=== PATIENT | female | born 1950 | race Caucasian/White ===

== ENCOUNTER 2021-02-19 13:31 | Emergency (ER) | payer MEDICARE, SELFPAY ==
[2021-02-19 13:46] VITALS: BP 132/79; PULSE 88; RESP 16; TEMP 38.1; O2SAT 93
--- NOTE | 2021-02-19 13:46 | XR_ITS ---
WS: [id number] Chest 2 views, 02/19/2021 Clinical Data: low O2 Comparison: None. Findings: No nodules, masses or effusions are seen. The heart is normal. The pulmonary vascularity is not increased. No pneumonia or pneumothorax is seen. The aortic arch and descending thoracic aorta s hows mild tortuosity. XR/XR chest 2V* 37133 Impression: Atherosclerosis.
[2021-02-19 15:45] LABS: Basophils # 0.1 10^3/uL (0.0-0.1); Basophils % 0.7 %; Eosinophils # 0.1 10^3/uL (0.0-0.8); Eosinophils % 1.2 %; Hematocrit 40.2 % (37.0-47.0); Hemoglobin 13.1 g/dL (11.5-15.3); Lymphocytes # 2.6 10^3/uL (0.8-4.8); Lymphocytes % 32.3 %; Mean Corpuscular HGB Conc 32.6 g/dL (30.0-36.0); Mean Corpuscular Hemoglobin 29.4 pg (28.0-34.0); Mean Corpuscular Volume 90.3 fl (81-99); Mean Platelet Volume 9.9 fL (7.4-10.4); Monocytes # 1.1 10^3/uL (0.2-0.9); Monocytes % 13.6 %; Neutrophils # 4.16 10^3/uL (1.8-7.7); Nucleated Red Blood Cells % 0 %; Platelet Count 206 10^3/cmm (130-400); Red Blood Count 4.45 10^6/uL (4.1-5.3); Red Cell Distribution Width 12.7 % (12.1-15.1)
[2021-02-19 15:58] LABS: Alanine Aminotransferase 18 U/L (0-33); Albumin Level 4.2 g/dL (3.5-5.2); Alkaline Phosphatase 64 IU/L (35-105); Anion Gap 15.9 (5-19); Aspartate Amino Transferase 20 U/L (0-32); Blood Urea Nitrogen 22 mg/dL (8-23); Calcium 8.8 mg/dL (8.5-10.5); Carbon Dioxide 26 mmol/L (22-29); Chloride 98 mmol/L (98-107); Globulin 3.2 g/dL (1.3-4.6); Glomerular Filtration Rate 34.5 mL/min (90-130); Glucose 128 mg/dL (65-115); Osmolality Calculated 285 mOsm/kg (285-295); Potassium 4.9 mmol/L (3.5-5.1); Sodium 135 mmol/L (136-145); Total Bilirubin 0.7 mg/dL (0.15-1.2); Total Protein 7.4 g/dL (6.6-8.7)
[2021-02-19 16:01] LABS: Lactate (Lactic Acid level) 0.8 mmol/L (0.5-2.2)
[2021-02-19 18:11] VITALS: O2SAT 97
[2021-02-19 18:15] LABS: Influenza A by IFA Negative (Negative); Influenza B by IFA Negative (Negative)
--- NOTE | 2021-02-19 18:52 | ED_ITS ---
HPI - General Adult General: Chief complaint: COVID symptoms Stated complaint: LOW O2 Time Seen by Provider: 02/19/21 17:24 History of Present Illness: HPI narrative: CC: Shortness of breath, fever and generalized weakness HPI: This is a [70] yo patient w/ hx of DM, PAD, w/ hx of two prior covid vacciantions presenting to the ED with malaise, generalized weakness, cough sputum production, and fever at home x 2days. Since onset of symptoms, has had some shortness of breath and decreased PO intake. NO recent travel. Endorses two sick COVID contacts during holiday season. Denies nausea/vomiting/diarrhea. Denies chest pain, diaphoresis, other GI or complaints. Denies any pleuritic chest pain, recent surgery/immobilization/travel, or hematemesis or hx of VTE in the past. Onset: 2 days ago Duration: ongoing for the last 2 days Location: home Severity: moderate Review of Systems Narrative: Constitutional: +subjective fever, +generalized weakness HEENT: No vision changes CV: No chest pain, no palpitations PULM: +cough, +dyspnea. GI: No abdominal pain, no N/V/D. : No dysuria MSKEL: No muscle pain SKIN: No new rashes, no lesions. NEURO: No headache, no focal weakness. HEME: No visible bruises PSYCH: Normal mood Physical Exam Narrative: EXAM NARRATIVE: Head: Atraumatic Eyes: PERRL, conjunctiva without injection ENT: Mucous membrane moist NECK: Supple without lymphadenopathy LUNGS: Coarse lung sounds, tachypnea, no crackles/wheezes/rhonchi on exam CV: RRR ABDOMEN: Soft, nontender EXTREMITY: Normal ROM SKIN: No rash or erythema NEURO: Awake and alert. No focal motor deficits. PSYCH: Normal mood and affect. Course Vital Signs: Vital signs: Vital Signs Temperature 98.4 F 02/19/21 21:23 Pulse Rate 82 02/19/21 21:40 Respiratory Rate 18 02/19/21 21:40 Blood Pressure 110/78 02/19/21 21:40 Pulse Oximetry 98 02/19/21 21:40 MDM - General Adult MDM Narrative: Medical decision making narrative: [70]yo patient presenting to the ED with shortness of breath, cough, and malaise concerning for COVID Given History, Exam, and Workup presentation most consistent with covid vs covid pneumonia.Presentation not consistent with PE, COPD exacerbation, Pneumothorax, TB, Atypical ACS, Esophageal Rupture, Toxic Exposure, Foreign Body Airway Obstruction. Workup: CXR Chest,COVID PCR Intervention: Tylenol 1gram, PO challenge, serial reassessment, oxygen [9:30pm] On reassessment, Covid test positive. Afebrile currently. Patient continues to be in no respiratory distress with sats sats > 95% without requirements of oxygen in the emergency department. I have offered patient monoclonal antibody (MCA) infusion since patient fulfills the following criteria: COVID+, symptom < 10 days, weight > 88lbs, age >12, NOT requiring additional oxygen compared to baseline. Fever improved with tylenol. I have discussed with patient the risks, benefits, and alternatives of obtaining MCA infusion from the MCA consent sheets in detail, and patient agrees with plan for infusion. Patient verbalizes understandings of the risks and alternatives to obtaining BAM today. Please refer to consent sheet for BAM treatment. Disposition: Discharge. Patient will be reached out for BAM infusion with the infusion clinic. I have given patient strict return precautions for any complications relating to BAM therapy Lab Data: Labs: Lab Results 02/19/21 02/19/21 02/19/21 15:10 15:10 15:10 WBC 8.0 10^3/uL 10^3/ uL (4.0-10.0) RBC 4.45 10^6/uL 10^6 /uL (4.1-5.3) Hgb 13.1 g/dL g/dL (11.5-15.3) Hct 40.2 % % (37.0-47.0) MCV 90.3 fl fl (81-99) MCH 29.4 pg pg (28.0-34.0) MCHC 32.6 g/dL g/dL (30.0-36.0) RDW 12.7 % % (12.1-15.1) Plt Count 206 10^3/cmm 10^3 /cmm (130-400) MPV 9.9 fL fL (7.4-10.4) Neut % (Auto) 52.0 % % Lymph % (Auto) 32.3 % % [place] % (Auto) 13.6 % % Eos % (Auto) 1.2 % % Baso % (Auto) 0.7 % % Neut # (Auto) 4.16 10^3/uL 10^3 /uL (1.8-7.7) Lymph # (Auto) 2.6 10^3/uL 10^3/ uL (0.8-4.8) [place] # (Auto) 1.1 10^3/uL H 10^ 3/uL (0.2-0.9) Eos # (Auto) 0.1 10^3/uL 10^3/ uL (0.0-0.8) Baso # (Auto) 0.1 10^3/uL 10^3/ uL (0.0-0.1) Nucleated RBC % (a uto) 0 % % Nucleated RBCs # 0.0 /100WBC /100W BC Sodium 135 mmol/L L mmol /L (136-145) Potassium 4.9 mmol/L mmol/L (3.5-5.1) Chloride 98 mmol/L mmol/L (98-107) Carbon Dioxide 26 mmol/L mmol/L (22-29) Anion Gap 15.9 (5-19) BUN 22 mg/dL mg/dL (8-23) Creatinine 1.5 mg/dL H mg/dL (0.5-0.9) GFR Calculation 34.5 mL/min L mL/ min (90-130) Glucose 128 mg/dL H mg/dL (65-115) Calculated Osmolal ity 285 mOsm/kg mOsm/ kg (285-295) Lactate 0.8 mmol/L mmol/L (0.5-2.2) Calcium 8.8 mg/dL mg/dL (8.5-10.5) Total Bilirubin 0.7 mg/dL mg/dL (0.15-1.2) AST 20 U/L U/L (0-32) ALT 18 U/L U/L (0-33) Alkaline Phosphata se 64 IU/L IU/L (35-105) Total Protein 7.4 g/dL g/dL (6.6-8.7) Albumin 4.2 g/dL g/dL (3.5-5.2) Globulin 3.2 g/dL g/dL (1.3-4.6) Coronavirus 229E ( PCR) Influenza Type A A g Influenza Type B A g SARS-CoV-2 (PCR) 02/19/21 02/19/21 17:48 19:13 WBC RBC Hgb Hct MCV MCH MCHC RDW Plt Count MPV Neut % (Auto) Lymph % (Auto) [place] % (Auto) Eos % (Auto) Baso % (Auto) Neut # (Auto) Lymph # (Auto) [place] # (Auto) Eos # (Auto) Baso # (Auto) Nucleated RBC % (a uto) Nucleated RBCs # Sodium Potassium Chloride Carbon Dioxide Anion Gap BUN Creatinine GFR Calculation Glucose Calculated Osmolal ity Lactate Calcium Total Bilirubin AST ALT Alkaline Phosphata se Total Protein Albumin Globulin Coronavirus 229E ( PCR) Not detected (NOT DETECT) Influenza Type A A g Negative (Negative) Influenza Type B A g Negative (Negative) SARS-CoV-2 (PCR) Detected A (NOT DETECT) Imaging Data^: Other Imaging: Radiologist's impression: [address] [address]MFwd ReportSigned Patient: Aida Patino #: [id number]: [id number]#:[id number]/Sex: 70 / FADM Date: 02/19/21[facility]Attending Dr: Ordering Provider/Ordering MD: Dyana Pérez Date of Service: 02/19/21 Procedure(s): XR chest 2V* [id number] Accession Number(s): [id number] Report Number: [id number] WS: [id number] Chest 2 views, 02/19/2021 Clinical Data: low O2 Comparison: None. Findings: No nodules, masses or effusions are seen. The heart is normal. The pulmonary vascularity is not increased. No pneumonia or pneumothorax is seen. The aortic arch and descending thoracic aorta shows mild tortuosity. XR/XR chest 2V* [id number] Impression: Atherosclerosis. Dictated By:Lesia Moy MDSigned By:Lesia Moy MDSigned Date/Erich e:02/19/21 140DD/ 05 Discharge Plan Discharge Patient Disposition: Home Clinical Impression: Generalized weakness, Malaise, Cough, COVID-19 Condition: Stable Prescriptions: New Maalox Advanced 1,000-60 mg tablet,chewable 1 tab PO TID PRN (Reason: abdominal pain) 7 Days Qty: 21 RF: 0 Pepcid 20 mg tablet 20 mg PO BID PRN (Reason: abdominal pain) 10 Days Qty: 20 RF: 0 Discharge Orders: Discharge ED (Routine); Ordered 02/19/21 Ordered By: [place] Other Ambulatory Orders: Request for MCA (Routine) Timeframe: 1 Day Facility: [facility] - Location: [facility] Ordered By: Piter Tirado Discharge Diet: Advance as tolerated Discharge Activity: Resume usual activity Patient Instructions: COVID-19 (Coronavirus Disease 2019) (ED) Activity Restrictions/Additional Instructions: Come back to the emergency room if your symptoms worsen, have any shortness of breath, fever/chills, dehydration, inability tolerate p.o., any difficulty breathing, or any new or concerning complaints. Follow with infusion clinic for your monoclonal antibody. Please return the emergency room if your pulse ox reads less than 88%. Coding Level of Care Code ED Rn Ambulatory for Brianda Watt
[2021-02-19] MEDS: acetaminophen 500 mg Tablet 1000 MG PO (20:29)
[2021-02-19] MEDS: sodium chloride 0.9% 1,000 ML 999 ML IV (20:30)
[2021-02-19 20:37] VITALS: BP 104/72; PULSE 84; RESP 16; O2SAT 98
[2021-02-19 21:00] LABS: Adenovirus Not Detected (NOT DETECT); Chlamydia Pneumoniae Not Detected (NOT DETECT); Coronavirus 229E,HKU1,NL63,OC4 Not Detected (NOT DETECT); Human Metapneumovirus Not Detected (NOT DETECT); Human Rhinovirus/Enterovirus Not Detected (NOT DETECT); Influenza A Not Detected (NOT DETECT); Influenza A H1 Not Detected (NOT DETECT); Influenza A H1-2009 Not Detected (NOT DETECT); Influenza A H3 Not Detected (NOT DETECT); Influenza B Not Detected (NOT DETECT); Mycoplasma Pneumoniae Not Detected (NOT DETECT); Parainfluenza Virus Type 1 Not Detected (NOT DETECT); Parainfluenza Virus Type 2 Not Detected (NOT DETECT); Parainfluenza Virus Type 3 Not Detected (NOT DETECT); Parainfluenza Virus Type 4 Not Detected (NOT DETECT); Respiratory Syncytial Virus A Not Detected (NOT DETECT); Respiratory Syncytial Virus B Not Detected (NOT DETECT); SARS-COV-2 Detected (NOT DETECT)
[2021-02-19 21:23] VITALS: TEMP 36.9
[2021-02-19 21:40] VITALS: BP 110/78; PULSE 82; RESP 18; O2SAT 98
== END 2021-02-19 21:42 | disposition home or self-care (01) ==
PROVIDERS: Physician Assistant; Emergency Provider Emergency Medicine
DX: U07.1 COVID-19 (principal)
CPT/HCPCS: 36415; 71046; 80053; 83605; 85025; 87635; 87804; 96360; 99283; J7030

== ENCOUNTER 2021-02-20 11:08 | Outpatient (CLI) | payer MEDICARE, SELFPAY ==
[2021-02-20 12:36] VITALS: BP 128/70; PULSE 85; RESP 16; TEMP 36.8; O2SAT 96; BMI 31.1
[2021-02-20 13:07] VITALS: BP 130/69; PULSE 84; RESP 16; TEMP 36.8; O2SAT 97
[2021-02-20 14:07] VITALS: BP 130/72; PULSE 82; RESP 17; TEMP 36.8; O2SAT 95
== END 2021-02-20 11:09 | disposition home or self-care (01) ==
PROVIDERS: PCP Family Medicine; Visit Provider Emergency Medicine
DX: U07.1 COVID-19 (principal)
CPT/HCPCS: 96365

== ENCOUNTER → 2024-08-15 08:48 | Outpatient (BNVA) | payer MEDICARE, SELFPAY | PROVIDERS: PCP Family Medicine; Visit Provider Podiatrist Foot & Ankle Surgery | DX: M79.671 Pain in right foot (principal); M79.672 Pain in left foot; M72.2 Plantar fascial fibromatosis; M77.31 Calcaneal spur, right foot; M77.32 Calcaneal spur, left foot; M21.6X1 Other acquired deformities of right foot; M21.6X2 Other acquired deformities of left foot | CPT/HCPCS: 73630; 99204 ==

== ENCOUNTER → 2024-09-26 09:17 | Outpatient (BNVA) | payer MEDICARE, SELFPAY | PROVIDERS: PCP Family Medicine; Visit Provider Podiatrist Foot & Ankle Surgery | DX: M72.2 Plantar fascial fibromatosis (principal); M77.31 Calcaneal spur, right foot; M77.32 Calcaneal spur, left foot; M21.6X1 Other acquired deformities of right foot; M21.6X2 Other acquired deformities of left foot | CPT/HCPCS: 20550; 99214 ==

== ENCOUNTER → 2024-11-13 10:06 | Outpatient (BNVA) | payer MEDICARE, SELFPAY | PROVIDERS: PCP Family Medicine; Visit Provider Podiatrist Foot & Ankle Surgery | DX: M72.2 Plantar fascial fibromatosis (principal); M77.31 Calcaneal spur, right foot; M77.32 Calcaneal spur, left foot; M21.6X1 Other acquired deformities of right foot; M21.6X2 Other acquired deformities of left foot | CPT/HCPCS: 99213 ==

== ENCOUNTER → 2025-01-11 08:32 | Outpatient (BNVA) | payer MEDICARE, SELFPAY | PROVIDERS: PCP Family Medicine; Visit Provider Dermatology | DX: L82.1 Other seborrheic keratosis (principal); D18.01 Hemangioma of skin and subcutaneous tissue; L81.4 Other melanin hyperpigmentation; L57.8 Other skin changes due to chronic exposure to nonionizing radiation | CPT/HCPCS: 99203 ==